=== PATIENT | male | born 1975 ===

== ENCOUNTER → 2023-10-18 | Outpatient (REF) | payer OTHER ==
[2023-10-18 14:57] LABS: SEMEN APPEARANCE OPAQUE (OPAQUE)
[2023-10-18 15:03] LABS: SEMEN VISCOSITY LIQUID (LIQUID); SEMEN VOLUME 1.8 ml (2.0-5.0); SEMEN pH 8.5 (7.0-8.0); WBC CONCENTRATION <=1 M/ml (<=1 M/ml)
[2023-10-18 15:04] LABS: SPERM CONCENTRATION 124.7 M/ml (>=15.0)
== END ==
LOC: M LAB REF 14:43
PROVIDERS: ATTEND Nurse Practitioner Family
DX: Z31.41 Encounter for fertility testing (principal)